=== PATIENT | male | born 1945 | race Caucasian/White ===

== ENCOUNTER 2020-03-14 19:43 | Inpatient (IN) ==
[2020-03-14] MEDS ORDERED: Naloxone 0.4 MG/ML INJ IVP PRN (23:01)
[2020-03-14] MEDS ORDERED: Acetaminophen 325 MG TABLET PO PRN (23:01)
[2020-03-14] MEDS ORDERED: Ondansetron 4 MG/2 ML VIAL IVP PRN (23:01)
[2020-03-14] MEDS ORDERED: Ipratropium/Albuterol Neb 3 ML IH PRN (23:03)
[2020-03-15] MEDS ORDERED: D5% in Water 1,000 ML IVC PRN (01:09)
[2020-03-15] MEDS ORDERED: *HR* Dextrose 50 % in Water (Vial) 50 ML VIAL IVP PRN (01:09)
[2020-03-15] MEDS ORDERED: Dextrose Gel 15 GM/37.5 ML TUBE PO PRN ×2 (01:09)
[2020-03-15] MEDS: Insulin LISPRO 300 UNITS/3 ML VIAL SQ SCH ×4 (01:27→16:41)
[2020-03-15 05:36] LABS: Basophils % 0.5 %; Hematocrit 44.7 % (37.5-50.1); Hemoglobin 14.5 g/dL (12.9-16.9); Immature Granulocytes % 1.3 % (0-4); Lymphocytes # 0.6 K/mcL (0.6-4.6); Lymphocytes % 14.6 %; Mean Corpuscular HGB Conc 32.4 g/dL (31.6-35.5); Mean Corpuscular Hemoglobin 29.5 pg (28.0-33.3); Mean Corpuscular Volume 90.9 fL (83.0-100.0); Mean Platelet Volume 12.3 fL (9.4-12.4); Monocytes # 0.4 K/mcL (0.0-1.3); Monocytes % 10.1 %; Neutrophils # 2.8 K/mcL (1.6-8.9); Platelet Count 141 K/mcL (140-400); Red Blood Count 4.92 M/mcL (4.19-5.50); Red Cell Distribution Width 13.4 % (11.5-14.5); Segmented Neutrophils % 73.5 %; White Blood Count 3.8 K/mcL (4.3-11.1)
[2020-03-15 06:00] LABS: Alanine Aminotransferase 42 Units/L (7-52); Albumin 3.4 g/dL (3.5-5.7); Albumin/Globulin Ratio 1.1 (1.1-2.2); Alkaline Phosphatase 50 Units/L (34-104); Aspartate Amino Transferase 62 Units/L (13-39); BUN/Creatinine Ratio 24 (6-26); Blood Urea Nitrogen 33 mg/dL (8-23); Calcium 8.9 mg/dL (8.6-10.3); Carbon Dioxide 25 mEq/L (23-29); Chloride 103 mEq/L (98-107); Chol/HDL Ratio 3.8 (0-4.9); Cholesterol 95 mg/dL (< 200); Glucose 168 mg/dL (70-105); HDL Cholesterol 25 mg/dL (40-59); LDL Cholesterol,Calculated 44 mg/dL (< 100); Magnesium 1.9 mg/dL (1.6-2.6); Osmolality,Calculated 293 (280-300); Phosphorous 3.4 mg/dL (2.7-4.5); Potassium 4.1 mEq/L (3.5-5.1); Sodium 136 mEq/L (136-145); Total Protein 6.4 g/dL (6.4-8.9); Triglycerides 129 mg/dL (< 150); eGFR For African Americans > 60 (> 60); eGFR For Non-African Americans 50 (> 60)
[2020-03-15] MEDS: Dexamethasone 4 MG/ML VIAL IVP SCH (08:47)
[2020-03-15] MEDS: Azithromycin 500 MG in 0.9 % Sodium Chloride 250 ML IVPB SCH (08:56)
[2020-03-15 12:16] LABS: INR 1.2; Prothrombin Time 13.7 Seconds (9.4-12.1)
[2020-03-15 12:40] LABS: C-Reactive Protein 106 mg/L (Less than 10); Lactate Dehydrogenase 282 Units/L (140-271)
[2020-03-15] MEDS: *HR* Heparin 5,000 UNIT/ML VIAL SQ SCH ×2 (16:30→21:01)
[2020-03-15] MEDS: BuPROPion SR (12 HR) 150 MG TABLET PO SCH (20:04)
[2020-03-15] MEDS: Famotidine 20 MG TABLET PO SCH (20:04)
[2020-03-15] MEDS ORDERED: 0.9 % Sodium Chloride 250 ML ONE (23:15)
[2020-03-16] MEDS: *HR* Heparin 5,000 UNIT/ML VIAL SQ SCH ×3 (05:04→20:22)
[2020-03-16 08:38] LABS: Hematocrit 45.3 % (37.5-50.1); Hemoglobin 14.7 g/dL (12.9-16.9); Mean Corpuscular HGB Conc 32.5 g/dL (31.6-35.5); Mean Corpuscular Volume 89.3 fL (83.0-100.0); Mean Platelet Volume 12.7 fL (9.4-12.4); Platelet Count 199 K/mcL (140-400); Red Blood Count 5.07 M/mcL (4.19-5.50); Red Cell Distribution Width 13.3 % (11.5-14.5)
[2020-03-16 08:39] LABS: White Blood Count 10.3 K/mcL (4.3-11.1)
[2020-03-16] MEDS: Famotidine 20 MG TABLET PO SCH (08:43)
[2020-03-16] MEDS: Aspirin Enteric Coated 81 MG Tablet PO SCH (08:44)
[2020-03-16] MEDS: Dexamethasone 4 MG/ML VIAL IVP SCH (08:44)
[2020-03-16] MEDS: BuPROPion SR (12 HR) 150 MG TABLET PO SCH ×2 (08:44→20:22)
[2020-03-16] MEDS: Azithromycin 500 MG in 0.9 % Sodium Chloride 250 ML IVPB SCH (08:45)
[2020-03-16 08:59] LABS: Calcium 9.7 mg/dL (8.6-10.3); Potassium 4.3 mEq/L (3.5-5.1)
[2020-03-16] MEDS ORDERED: Fenofibrate 54 MG TABLET PO SCH (09:00)
[2020-03-16] MEDS: Insulin LISPRO 300 UNITS/3 ML VIAL SQ SCH ×3 (09:07→16:54)
[2020-03-16] MEDS ORDERED: 0.9 % Sodium Chloride 250 ML ONE (14:13)
[2020-03-17 02:24] LABS: Basophils % 0.2 %; Hematocrit 41.8 % (37.5-50.1); Hemoglobin 13.5 g/dL (12.9-16.9); Immature Granulocytes % 1.1 % (0-4); Lymphocytes # 0.6 K/mcL (0.6-4.6); Lymphocytes % 6.1 %; Mean Corpuscular HGB Conc 32.3 g/dL (31.6-35.5); Mean Corpuscular Volume 89.9 fL (83.0-100.0); Mean Platelet Volume 12.1 fL (9.4-12.4); Monocytes # 0.9 K/mcL (0.0-1.3); Monocytes % 9.9 %; Neutrophils # 7.7 K/mcL (1.6-8.9); Platelet Count 203 K/mcL (140-400); Red Blood Count 4.65 M/mcL (4.19-5.50); Red Cell Distribution Width 13.2 % (11.5-14.5); Segmented Neutrophils % 82.7 %; White Blood Count 9.4 K/mcL (4.3-11.1)
[2020-03-17 02:44] LABS: Alanine Aminotransferase 34 Units/L (7-52); Albumin 3.4 g/dL (3.5-5.7); Albumin/Globulin Ratio 1.2 (1.1-2.2); Alkaline Phosphatase 47 Units/L (34-104); Aspartate Amino Transferase 46 Units/L (13-39); BUN/Creatinine Ratio 36 (6-26); Bilirubin,Total 0.8 mg/dL (0.3-1.0); Blood Urea Nitrogen 45 mg/dL (8-23); Calcium 9.4 mg/dL (8.6-10.3); Carbon Dioxide 26 mEq/L (23-29); Chloride 106 mEq/L (98-107); Globulin 2.9 g/dL (2.4-3.5); Glucose 132 mg/dL (70-105); Osmolality,Calculated 303 (280-300); Potassium 4.3 mEq/L (3.5-5.1); Sodium 140 mEq/L (136-145); Total Protein 6.3 g/dL (6.4-8.9); eGFR For African Americans > 60 (> 60); eGFR For Non-African Americans 56 (> 60)
[2020-03-17] MEDS ORDERED: 0.9 % Sodium Chloride 250 ML ONE (04:20)
[2020-03-17] MEDS: *HR* Heparin 5,000 UNIT/ML VIAL SQ SCH ×3 (06:15→20:37)
[2020-03-17] MEDS: Famotidine 20 MG TABLET PO SCH (08:01)
[2020-03-17] MEDS: Aspirin Enteric Coated 81 MG Tablet PO SCH (08:01)
[2020-03-17] MEDS: BuPROPion SR (12 HR) 150 MG TABLET PO SCH ×2 (08:01→20:37)
[2020-03-17] MEDS: Azithromycin 250 MG TABLET PO SCH (08:01)
[2020-03-17] MEDS: Dexamethasone 4 MG/ML VIAL IVP SCH (08:01)
[2020-03-17] MEDS: Insulin LISPRO 300 UNITS/3 ML VIAL SQ SCH (08:25)
[2020-03-18 02:21] LABS: Basophils % 0.3 %; Hematocrit 43.3 % (37.5-50.1); Hemoglobin 13.6 g/dL (12.9-16.9); Immature Granulocytes % 1.1 % (0-4); Lymphocytes # 0.5 K/mcL (0.6-4.6); Lymphocytes % 7.1 %; Mean Corpuscular HGB Conc 31.4 g/dL (31.6-35.5); Mean Corpuscular Hemoglobin 29.3 pg (28.0-33.3); Mean Corpuscular Volume 93.3 fL (83.0-100.0); Mean Platelet Volume 12.1 fL (9.4-12.4); Monocytes # 0.9 K/mcL (0.0-1.3); Neutrophils # 5.6 K/mcL (1.6-8.9); Platelet Count 210 K/mcL (140-400); Red Blood Count 4.64 M/mcL (4.19-5.50); Red Cell Distribution Width 13.2 % (11.5-14.5); Segmented Neutrophils % 78.5 %; White Blood Count 7.2 K/mcL (4.3-11.1)
[2020-03-18 02:36] LABS: BUN/Creatinine Ratio 33 (6-26); Blood Urea Nitrogen 39 mg/dL (8-23); C-Reactive Protein 34 mg/L (Less than 10); Calcium 9.4 mg/dL (8.6-10.3); Carbon Dioxide 27 mEq/L (23-29); Chloride 106 mEq/L (98-107); Glucose 128 mg/dL (70-105); Osmolality,Calculated 301 (280-300); Potassium 4.3 mEq/L (3.5-5.1); Sodium 140 mEq/L (136-145); eGFR For African Americans > 60 (> 60); eGFR For Non-African Americans > 60 (> 60)
[2020-03-18] MEDS: *HR* Heparin 5,000 UNIT/ML VIAL SQ SCH ×2 (05:29→12:43)
[2020-03-18] MEDS: Famotidine 20 MG TABLET PO SCH (07:03)
[2020-03-18] MEDS: Azithromycin 250 MG TABLET PO SCH (07:03)
[2020-03-18] MEDS: BuPROPion SR (12 HR) 150 MG TABLET PO SCH (07:03)
[2020-03-18] MEDS: Aspirin Enteric Coated 81 MG Tablet PO SCH (07:03)
[2020-03-18] MEDS: Dexamethasone 4 MG/ML VIAL IVP SCH (07:03)
[2020-03-18 07:36] VITALS: BP 137/73
[2020-03-18] MEDS ORDERED: lisinopriL 20 MG TABLET PO SCH (09:00)
[2020-03-18] MEDS ORDERED: Famotidine 20 MG TABLET PO SCH (21:00)
== END 2020-03-18 14:21 | DRG 177 ==
LOC: 2NENU → SUATTDRO 22:07
PROVIDERS: ADMIT Student in an Organized Health Care Education/Training Program; ATTEND Internal Medicine